=== PATIENT | male | born 1985 | race Caucasian/White ===

== ENCOUNTER 2020-04-04 22:56 | Emergency (ER) | payer MEDICAID ==
[~2020-04-04] VITALS: Ht 190.5 cm; Wt 81.8 kg
[2020-04-04 23:03] VITALS: BP 144/90
== END 2020-04-04 23:38 ==
LOC: ER 22:57
DX: S90.512A Abrasion, left ankle, initial encounter (principal); S90.511A Abrasion, right ankle, initial encounter; M54.5 Low back pain; V87.7XXA Person injured in collision between other specified motor vehicles (traffic), initial encounter; Y93.89 Activity, other specified; Y92.89 Other specified places as the place of occurrence of the external cause; Y99.8 Other external cause status
CPT/HCPCS: 99283